=== PATIENT | male | born 1980 | race Caucasian/White ===

== ENCOUNTER 2017-07-16 20:03 | Observation (INO) | payer OTHER, SELFPAY ==
[2017-07-16 21:02] LABS: #Eosinphils 0.2 thou/uL (0.0-0.7); #Lymphocytes 2.8 thou/uL (1.20-3.40); #Monocytes 0.4 thou/uL (0.11-0.59); #Neutrophils 3.9 thou/uL (1.40-6.50); %Basophils 0.6 % (0.0-1.0); %Eosinophils 2.6 % (0.0-10.0); %Monocytes 5.9 % (0.0-10.0); %Neutrophils 52.8 % (42.0-75.0); Hemoglobin 14.8 g/dL (14.0-18.0); Mean Corpuscular HGB CONC 34.2 g/dL (32.0-36.0); Mean Corpuscular Hemoglobin 30.2 pg (27.0-31.0); Mean Corpuscular Volume 88.5 fl (80.0-94.0); Mean Platelet Volume 8.2 fL (7.4-10.4); Platelet Count 249 thou/uL (130-400); RBC Distribution Width 11.7 % (11.5-14.5); Red Blood Cell (RBC) Count 4.88 mill/uL (4.70-6.10); White Blood Cell (WBC) Count 7.3 thou/uL (4.8-10.8)
[2017-07-16 21:30] LABS: Acetaminophen Less than 6.0 mcg/mL (10.0-30.0); Alcohol Less than 10 mg/dL (Less than 10); CK (CPK) 98 U/L (30-200); Salicylate Less than 8.0 mg/dL (15.0-30.0)
[2017-07-16 21:54] LABS: ALT (SGPT) 53 U/L (8-55); AST (SGOT) 35 U/L (5-34); Albumin 4.4 g/dL (3.5-5.0); Alkaline Phosphatase 79 U/L (40-150); Anion Gap 14 mmol/L (10-20); BUN (Urea Nitrogen) 16 mg/dL (8.9-20.6); Bilirubin, Total 0.3 mg/dL (0.2-1.2); Calc. Creatinine Clearance 0 mL/min (70-130); Calcium 9.5 mg/dL (7.8-10.44); Carbon Dioxide 22 mmol/L (22-29); Chloride 106 mmol/L (98-107); Estimated GFR-MDRD Greater than 90; Globulin 2.9 g/dL (2.4-3.5); Glucose 115 mg/dL (70-105); Magnesium 2.4 mg/dL (1.6-2.6); Potassium 3.9 mmol/L (3.5-5.1); Protein, Total 7.3 g/dL (6.0-8.3); Sodium 138 mmol/L (136-145)
[2017-07-16 22:05] LABS: Clarity Clear (Clear); Specific Gravity, Urine 1.032 (1.002-1.036)
[2017-07-16 22:06] LABS: Amphetamine Not Detected (NotDetected); Bacteria/HPF None Seen HPF (None Seen); Barbiturates Screen Not Detected (NotDetected); Benzodiazepine Screen Not Detected (NotDetected); Bilirubin Negative (Negative); Blood, Urine Trace (Negative); Cocaine Metabolite Screen Not Detected (NotDetected); Glucose, Urine (Dipstick) Negative (Negative); Hyaline Casts/LPF 0-3 HYALINE CAST LPF (0-3 Hyaline); Leukocyte Negative (Negative); Medtox Control Line Valid? VALID (VALID); Medtox Reader # READER 4; Methadone Not Detected (NotDetected); Methamphetamine Not Detected (NotDetected); Nitrite Negative (Negative); Opiate Screen Not Detected (NotDetected); Oxycodone Screen Not Detected (NotDetected); Phencyclidine (PCP) Not Detected (NotDetected); Protein, Urine (Dipstick) Trace mg/dL (Neg-Trace); RBC/HPF 0-3 HPF (0-3); Squamous Epithelial 0-3 HPF (0-3); THC/Cannabinoid Screen Not Detected (NotDetected); Tricyclic Screen Not Detected (NotDetected); Urobilinogen 0.2 mg/dL (0.2-1.0); WBC/HPF 0-3 HPF (0-3)
[2017-07-17] MEDS ORDERED: Sodium Chloride 0.9% 1,000 ML IV SCH (00:55)
[2017-07-17 01:05] VITALS: BMI 41.1
[2017-07-17] MEDS ORDERED: Acetaminophen 650 MG Suppository PR PRN (02:16)
[2017-07-17] MEDS ORDERED: Ondansetron ODT 4 MG TAB PO PRN (02:16)
[2017-07-17] MEDS ORDERED: Ondansetron PF 4 MG/2 ML Vial IVP PRN (02:16)
[2017-07-17] MEDS ORDERED: Acetaminophen 500 MG TAB PO PRN (02:16)
[2017-07-17 05:20] LABS: Band 2 % (5-11); Eosinophils 2 % (0-10); Hemoglobin 13.8 g/dL (14.0-18.0); Lymphocytes 43 % (21-51); MDiff Complete? YES; Mean Corpuscular HGB CONC 33.6 g/dL (32.0-36.0); Mean Corpuscular Hemoglobin 30.1 pg (27.0-31.0); Mean Corpuscular Volume 89.6 fl (80.0-94.0); Mean Platelet Volume 7.9 fL (7.4-10.4); Monocytes 10 % (0-10); Neutrophil 43 % (42-75); PLT Morphology Comment Appears Adequate; Platelet Count 217 thou/uL (130-400); RBC Distribution Width 11.7 % (11.5-14.5); Red Blood Cell (RBC) Count 4.57 mill/uL (4.70-6.10); White Blood Cell (WBC) Count 6.8 thou/uL (4.8-10.8)
[2017-07-17 05:30] LABS: ALT (SGPT) 42 U/L (8-55); AST (SGOT) 25 U/L (5-34); Albumin 3.7 g/dL (3.5-5.0); Alkaline Phosphatase 67 U/L (40-150); Anion Gap 8 mmol/L (10-20); BUN (Urea Nitrogen) 13 mg/dL (8.9-20.6); Bilirubin, Total 0.4 mg/dL (0.2-1.2); Calc. Creatinine Clearance 238 mL/min (70-130); Calcium 8.7 mg/dL (7.8-10.44); Carbon Dioxide 24 mmol/L (22-29); Chloride 110 mmol/L (98-107); Estimated GFR-MDRD Greater than 90; Globulin 2.4 g/dL (2.4-3.5); Glucose 102 mg/dL (70-105); Potassium 4.2 mmol/L (3.5-5.1); Protein, Total 6.1 g/dL (6.0-8.3); Sodium 138 mmol/L (136-145)
--- NOTE | 2017-07-17 06:23 | HP ---
DATE OF ADMISSION: 07/17/2017 PRIMARY CARE PROVIDER: Izabel fitch. CHIEF COMPLAINT: Intentional overdose with clonazepam. HISTORY OF PRESENT ILLNESS: This is a 36-year-old male, who presents to [facility] Emergency Department with a significant history of anxiety and posttraumatic stress d isorder with an apparent intentional overdose of clonazepam up to 70 tablets taken approximately 20 m inutes prior to arrival in the emergency room. The patient apparently describe that his life was" fa lling apart," which prompted him to this action. In the emergency room, the patient underwent genera l evaluation including urine drug screen, which was negative. The patient received intravenous chapis l saline x3 liters in addition to activated charcoal. The patient was noted with some lethargy, but no acute distress. The history is obtained after review of electronic medical record in the emergenc y room as well as discussions with the ER attending and nursing staff as patient is lethargic and gianfranco ble to provide any specific history. PAST MEDICAL HISTORY: 1. Anxiety disorder. 2. Depression. 3. Posttraumatic stress disorder. 4. Question of hypertension. PAST SURGICAL HISTORY: Status post right ankle repair. CURRENT MEDICATIONS: 1. Klonopin 1 mg p.o. b.i.d. 2. Zoloft 25 mg p.o. daily. ALLERGIES: No known drug allergies. FAMILY HISTORY: Positive for hypertension, diabetes, and coronary artery disease in his grandmother, onset at 40 years of age. SOCIAL HISTORY: The patient resides in [place], [place]. Unemployed. Positive tobacco use, using a vap orizer. Remote history of marijuana use. Social alcohol use. No illicit drug use currently. REVIEW OF SYSTEMS: Unobtainable due to the patient's altered mental status and benzodiazepine overdo se. PHYSICAL EXAMINATION: VITAL SIGNS: Currently, blood pressure 96/55, pulse 69, respiratory rate 20, temperature 97.6 degree s Fahrenheit, O2 saturation 94% on room air. GENERAL APPEARANCE: This is a 36-year-old male, lethargic and unable to arouse. HEENT: Pupils are minimally reactive to light and accommodation. No scleral icterus. Nares patent. OP is clear. Oral mucosa dry. NECK: Supple, no cervical adenopathy, no thyromegaly, no carotid bruits, no JVD appreciated. Cervic al spine with full passive range of motion. No meningeal signs appreciated. CHEST: Lungs are clear to auscultation bilaterally. CARDIOVASCULAR: S1, S2 with tachycardia. No murmur, rub or gallop appreciated. ABDOMEN: Obese, soft, nontender, nondistended. Bowel sounds are positive in all four quadrants. Th ere is no hepatosplenomegaly, no abdominal bruits, no rebound or guarding appreciated. EXTREMITIES: Warm and dry with fair turgor. No clubbing, cyanosis or asymmetric edema appreciated. Pulses palpable distally at the dorsalis pedis, posterior tibial, and popliteal arteries bilaterally . Capillary refill less than 2 seconds. NEUROLOGIC: Lethargic and difficult to arouse with painful stimuli. Pupils are minimally reactive t o light and accommodation. Does not follow commands. PERTINENT LABORATORY AND X-RAY FINDINGS: Basic metabolic profile within normal limits. TSH 2.45. T otal CK of 98. CBC within normal limits. Urinalysis negative. Urine drug screen dated 07/16/2017 n egative. Plasma alcohol level less than 10. EKG dated 07/16/2017 by my interpretation shows sinus t achycardia with heart rates in the low 100s. Poor R-wave progression noted in the precordial leads. Normal axis. No acute ST-T wave changes appreciated. ASSESSMENT AND PLAN: 1. Intentional overdose with clonazepam. The patient will be placed in observation status. We will continue general supportive measures. The patient was not deemed an appropriate candidate for fluma zenil. The patient treated initially with general supportive measures with IV fluids and activated c harcoal. We will continue supportive measures and consult [facility] when patient clinically stabilizes. 2. Posttraumatic stress disorder/depression. Continue supportive management. Consult [facility] Service when patient clinically stabilizes. 3. Sinus tachycardia. Suspect secondary to #1. We will continue intravenous normal saline at 125 m L per hour. Continue telemetry monitoring. Anticipate improvement in overall tachycardia with medic al stabilization. 4. Depression. Resume home regimen of Zoloft 25 mg daily when the patient able to tolerate oral int greg. 5. Prophylaxis. Sequential compression devices while in bed. Pepcid 20 mg IV q.12 hours. MR con sult when patient clinically stabilizes. 6. Code status is FULL. Surrogate medical decision maker is patient's father.
[2017-07-17] MEDS: Sodium Chloride 0.9% 1,000 ML IV SCH ×2 (06:48→10:22)
[2017-07-17] MEDS ORDERED: Famotidine/PF 20 mg/2ml Vial SLOW IVP SCH (09:00)
--- NOTE | 2017-07-17 09:56 | PDOC.PN ---
- Subjective Encounter Start Date: 07/17/17 Encounter Start Time: 07:20 -: old records requested/rev Patient seen and examined for drug overdose, he is alert now,. No new complaints. No overnight events - Objective Resuscitation Status: Resuscitation Status FULL:Full Resuscitation MAR Reviewed: Yes Vital Signs & Weight: Vital Signs (12 hours) Temp Pulse Resp BP Pulse Ox 07/17/17 08:00 97.5 F L 78 18 115/70 94 L 07/17/17 01:00 97.6 F 69 20 07/17/17 00:29 97.6 F 69 20 96/55 L 94 L I&O: 07/16/17 07/17/17 07/18/17 06:59 06:59 06:59 Intake Total 500 Balance 500 Result Diagrams: 07/17/17 04:42 07/17/17 04:42 EKG Reviewed by me: Yes (nsr) Phys Exam - Physical Examination Constitutional: NAD HEENT: PERRLA, moist MMs, sclera anicteric Neck: no JVD, supple Respiratory: no wheezing, no rales, no rhonchi Cardiovascular: RRR, no significant murmur, no rub Gastrointestinal: soft, non-tender, no distention, positive bowel sounds Musculoskeletal: no edema, pulses present Neurological: non-focal, normal sensation, moves all 4 limbs Lymphatic: no nodes Psychiatric: normal affect, A&O x 3 Skin: no rash, normal turgor Dx/Plan (1) Drug overdose, intentional Code(s): T50.902A - POISONING BY UNSP DRUG/MEDS/BIOL SUBST, SELF-HARM, INIT Status: Acute (2) Anxiety and depression Code(s): F41.9 - ANXIETY DISORDER, UNSPECIFIED; F32.9 - MAJOR DEPRESSIVE DISORDER, SINGLE EPISODE, UNSPECIFIED Status: Chronic (3) Morbid obesity with BMI of 40.0-44.9, adult Code(s): E66.01 - MORBID (SEVERE) OBESITY DUE TO EXCESS CALORIES; Z68.41 - BODY MASS INDEX (BMI) 40.0-44.9, ADULT Status: Chronic (4) Post traumatic stress disorder Code(s): F43.10 - POST-TRAUMATIC STRESS DISORDER, UNSPECIFIED Status: Chronic - Plan cont current plan of care * medically stable * call [facility] * dispo based on [facility] recommendation * I have provided pt counselling and reassurance * medication reviewed as below * symptomatic treatment. Review of Systems - Review of Systems Eyes: negative: Pain, Vision Change, Conjunctivae Inflammation, Eyelid Inflammation, Redness, Other ENT: negative: Ear Pain, Ear Discharge, Nose Pain, Nose Discharge, Nose Congestion, Mouth Pain, Mouth Swelling, Throat Pain, Throat Swelling, Other Respiratory: negative: Cough, Dry, Shortness of Breath, Hemoptysis, SOB with Excertion, Pleuritic Pain, Sputum, Wheezing Cardiovascular: negative: chest pain, palpitations, orthopnea, paroxysmal nocturnal dyspnea, edema, light headedness, other Gastrointestinal: negative: Nausea, Vomiting, Abdominal Pain, Diarrhea, Constipation, Melena, Hematochezia, Other Genitourinary: negative: Dysuria, Frequency, Incontinence, Hematuria, Retention , Other Musculoskeletal: negative: Neck Pain, Shoulder Pain, Arm Pain, Back Pain, Hand Pain, Leg Pain, Foot Pain, Other Skin: negative: Rash, Lesions, Livan, Bruising, Other - Medications/Allergies Allergies/Adverse Reactions: Allergies Allergy/AdvReac Type Severity Reaction Status Date / Time No Known Allergies Allergy Unverified 07/17/17 00:31 Medications: Current Medications Acetaminophen (Tylenol) 1,000 mg PO Q6H PRN PRN Reason: Headache/Fever or Mild Pain Acetaminophen (Tylenol) 650 mg KS Q4H PRN PRN Reason: Headache/Fever or Mild Pain Famotidine (Pepcid) 20 mg SLOW IVP Q12HR [facility] Last Admin: 07/17/17 08:56 Dose: 20 mg Sodium Chloride (Normal Saline 0.9%) 1,000 mls @ 125 mls/hr IV .Q8H [facility] Last Admin: 07/17/17 06:48 Dose: Not Given Ondansetron HCl (Zofran Odt) 4 mg PO Q6H PRN PRN Reason: Nausea/Vomiting Ondansetron HCl (Zofran) 4 mg IVP Q6H PRN PRN Reason: Nausea/Vomiting
--- NOTE | 2017-07-17 11:23 | DIS ---
PRIMARY CARE PHYSICIAN: Dr. Shady Skelton DATE OF ADMISSION: 07/16/2017 DATE OF DISCHARGE: 07/17/2017 DISCHARGE DISPOSITION: Home/psych facility. PRIMARY DISCHARGE DIAGNOSIS: Drug overdose, intentional. SECONDARY DISCHARGE DIAGNOSES: 1. Anxiety and depression. 2. Morbid obesity with BMI 41 3. Post-traumatic stress disorder. PRIMARY PROCEDURE/OPERATION: None. RADIOLOGICAL INVESTIGATION: None. SIGNIFICANT LABORATORY DATA: WBC 6.8, hemoglobin 13.8, platelet 217. Sodium 138, potassium 4.2, BUN 13, creatinine 0.78. LFT normal. TSH 2.45. Urinalysis normal. Urine drug screen and serum drug s creen negative. DISCHARGE MEDICATIONS: The patient will continue all his previous medications, Klonopin 1 mg p.o. b. i.d., Maxalt 10 mg p.o. p.r.n. for migraine headache, Zoloft 25 mg p.o. daily. CONTRAINDICATIONS: None. CODE STATUS: FULL CODE. INPATIENT CONSULTANTS: . TEST RESULTS PENDING ON DISCHARGE: None. ALLERGIES: No known drug allergy. DISCHARGE PLAN: Post hospital, will discharge based on [facility] recommendation either to home or a psych facility. HOSPITAL COURSE: A 36-year-old male with the above-mentioned medical problems who was admitted by Dr Margie Reyes. Please see his H&P for further detail. The patient had an intentional overdose with clonaze honorio. When I saw today, this patient was alert, awake, arousable. In the emergency room, he was saran mireya with IV fluid and activated charcoal. He is no longer in a lethargic condition, that is why we c alled [facility] for evaluation. Based on [facility] assessment we will consider discharging him later on today, either home or psych facility. The patient is seen and examined at bedside today. I have provided basic counseling to the patient.
[2017-07-17 16:03] VITALS: BP 92/50; TEMP 97.9
--- NOTE | 2017-08-26 16:59 | EKG ---
Test Reason : Blood Pressure : / mmHG Vent. Rate : 105 BPM Atrial Rate : 105 BPM P-R Int : 164 ms QRS Dur : 074 ms QT Int : 340 ms P-R-T Axes : 025 -07 013 degrees QTc Int : 449 ms Sinus tachycardia with Premature supraventricular complexes and Fusion complexes Nonspecific ST and T wave abnormality Abnormal ECG Confirmed by WELLINGTON DIAZ, LUCY ([id number]), art editor QUIN DWYER ([id number]) on 08/26/2017 4:59:22 PM Referred By: Confirmed By:LUCY PARIS MD
== END 2017-07-17 17:25 ==
LOC: ERS 20:03 → 2SE 23:55
PROVIDERS: ADMIT Family Medicine; ATTEND Family Medicine
DX: T42.4X2A Poisoning by benzodiazepines, intentional self-harm, initial encounter (principal); F41.8 Other specified anxiety disorders; F43.10 Post-traumatic stress disorder, unspecified; R00.0 Tachycardia, unspecified; F17.290 Nicotine dependence, other tobacco product, uncomplicated; Z79.899 Other long term (current) drug therapy; E66.01 Morbid (severe) obesity due to excess calories; Z68.41 Body mass index [BMI] 40.0-44.9, adult
CPT/HCPCS: 36415; 36416; 80053; 80306; 80307; 81003; 81015; 82550; 83735; 84443; 85007; 85025; 85027; 93005; 94760; 96360; 96361; 96374; G0378; S0028

== ENCOUNTER 2018-09-03 15:24 | Emergency (ER) | payer SELFPAY ==
[2018-09-03 15:48] LABS: #Eosinphils 0.1 thou/uL (0.0-0.7); #Monocytes 0.4 thou/uL (0.11-0.59); #Neutrophils 6.7 thou/uL (1.40-6.50); %Basophils 0.5 % (0.0-1.0); %Eosinophils 0.8 % (0.0-10.0); %Lymphocytes 29.6 % (21.0-51.0); %Neutrophils 65.2 % (42.0-75.0); Hemoglobin 15.9 g/dL (14.0-18.0); Mean Corpuscular HGB CONC 32.5 g/dL (32.0-36.0); Mean Corpuscular Hemoglobin 28.9 pg (27.0-31.0); Mean Corpuscular Volume 88.8 fL (78.0-98.0); Mean Platelet Volume 8.6 fL (7.4-10.4); Platelet Count 287 thou/uL (130-400); RBC Distribution Width 11.5 % (11.5-14.5); Red Blood Cell (RBC) Count 5.51 mill/uL (4.70-6.10); White Blood Cell (WBC) Count 10.2 thou/uL (4.8-10.8)
--- NOTE | 2018-09-03 15:57 | RAD ---
PORTABLE CHEST 1 VIEW: Date: 09/03/18 Time: 1550 hours HISTORY: Shortness of breath. FINDINGS: Comparison made with exam of 12/03/16. The heart size is normal. The lungs are expanded without focal areas of consolidation, pneumothoraces , or pleural effusions. IMPRESSION: No radiographic evidence of acute cardiopulmonary process. POS: [facility]
[2018-09-03 16:09] LABS: ALT (SGPT) 32 U/L (8-55); AST (SGOT) 21 U/L (5-34); Alkaline Phosphatase 78 U/L (40-150); Anion Gap 15 mmol/L (10-20); BUN (Urea Nitrogen) 12 mg/dL (8.9-20.6); Bilirubin, Total 0.4 mg/dL (0.2-1.2); CK (CPK) 111 U/L (30-200); Calc. Creatinine Clearance 0 mL/min (70-130); Calcium 10.6 mg/dL (7.8-10.44); Carbon Dioxide 24 mmol/L (22-29); Chloride 103 mmol/L (98-107); Estimated GFR-MDRD 75; Globulin 2.7 g/dL (2.4-3.5); Glucose 118 mg/dL (70-105); Potassium 3.7 mmol/L (3.5-5.1); Protein, Total 7.7 g/dL (6.0-8.3); Sodium 138 mmol/L (136-145)
[2018-09-03] MEDS ORDERED: Diazepam 5 MG TAB ONE (17:19)
== END 2018-09-03 17:25 | disposition home or self-care (01) ==
LOC: ERS 15:24
DX: R07.89 Other chest pain (principal); R20.2 Paresthesia of skin; E78.00 Pure hypercholesterolemia, unspecified; F17.290 Nicotine dependence, other tobacco product, uncomplicated; Z79.899 Other long term (current) drug therapy
CPT/HCPCS: 36415; 71045; 80053; 82550; 84484; 85025; 93005